=== PATIENT | male | born 1960 | race Hispanic/Latino ===

== ENCOUNTER → 2020-02-04 | Day surgery (SDC) | payer SELFPAY ==
[~2020-02-04] MED LIST: FENTANYL CITRATE/PF 100MCG/2 ML INJ ONE; MIDAZOLAM HCL 2 MG/2 ML VIAL ONE; MULTI-VITAMIN1 EACH PO; OR PHACO EYE KIT ONE; PREOP PHACO EYE KIT ONE
[2020-02-04 13:45] VITALS: BP 122/54
== END | disposition home or self-care (01) ==
LOC: OR 10:22
PROVIDERS: ATTEND Ophthalmology
DX: H25.11 Age-related nuclear cataract, right eye (principal); Z68.26 Body mass index [BMI] 26.0-26.9, adult
CPT/HCPCS: 66984; J2250; J3010; V2632

== ENCOUNTER → 2020-03-09 | Outpatient (CLI) | payer OTHER ==
[~2020-03-09] MED LIST changes: +COVID-19 VACC, MRNA(MODERNA)/PF 100 MCG/0.5 ML VIAL IM ONE; -FENTANYL CITRATE/PF 100MCG/2 ML INJ ONE; -MIDAZOLAM HCL 2 MG/2 ML VIAL ONE; -OR PHACO EYE KIT ONE; -PREOP PHACO EYE KIT ONE
== END ==
LOC: VACCPMC 10:43
DX: Z23 Encounter for immunization (principal); Z20.828 Contact with and (suspected) exposure to other viral communicable diseases

== ENCOUNTER → 2020-04-13 | Outpatient (CLI) | payer OTHER | LOC: VACCPMC 07:40 | DX: Z23 Encounter for immunization (principal); Z20.822 Contact with and (suspected) exposure to COVID-19 ==

== ENCOUNTER 2020-11-11 10:55 | Emergency (ER) | payer BC, OTHER ==
[~2020-11-11] VITALS: Ht 170.2 cm; Wt 72.6 kg
[~2020-11-11 10:55] MED LIST changes: -COVID-19 VACC, MRNA(MODERNA)/PF 100 MCG/0.5 ML VIAL IM ONE
[2020-11-11] MEDS ORDERED: CASIRIVIMAB/IMDEVIMAB 10 ML in SODIUM CHLORIDE 0.9% 100 ML IV ONE (11:00)
[2020-11-11] MEDS ORDERED: SODIUM CHLORIDE 0.9% 100 ML ONE (11:13)
[2020-11-11 12:17] VITALS: BP 135/93
== END 2020-11-11 12:21 | disposition home or self-care (01) ==
LOC: ER 11:15
DX: R09.89 Other specified symptoms and signs involving the circulatory and respiratory systems (principal); U07.1 COVID-19
CPT/HCPCS: 99283; J7050